=== PATIENT | male | born 1935 | race Caucasian/White ===

== ENCOUNTER 2018-12-08 12:31 | Observation (INO) ==
--- NOTE | 2018-12-08 13:02 | Emergency Department Note ---
Disposition Clinical Impression: Chest pain Qualifiers: Chest pain type: unspecified Qualified Code(s): R07.9 - Chest pain, unspecified Disposition: Admitted As Inpatient Condition: Good Time of Disposition: 14:09 General Adult HPI - General Chief complaint: ED Dizziness Stated complaint: Dizzy, Chest pain Time Seen by Provider: 12/08/18 12:42 Source: patient, family Limitations: no limitations Nursing Notes Reviewed: Yes Vital Signs Reviewed: Yes - History of Present Illness HPI Narrative: Patient is an 83-year-old male that presents the emergency department with reports of having chest pain this morning. Patient states that the pain also radiated into his left neck, shoulder and down into his arm. Patient states that he did has some associated shortness of breath and nausea but no diaphoresis. Patient also states that when he got up to walk he had significant shortness of breath. Patient states that he has never had a heart attack or required stents placed in his heart. Patient states that he has no history of hypertension and hyperlipidemia. Patient states that he is currently chest pain-free. Patient does state that he took 4 baby aspirin prior to arrival. Pain Scale: 0 - Related Data Home Medications Medication Instructions Recorded Confirmed Cetirizine HCl 10/21/18 Chlorthalidone 10/21/18 Citalopram Hydrobromide 10/21/18 [place] 3 500 Softgel 10/21/18 [place] Dayquil Liquid 10/21/18 [place] Nyquil Cold & Flu Liquid 10/21/18 Previous Rx's Medication Instructions Recorded Azithromycin [Azithromycin 6-Tab 250 mg PO PER PKG DI #6 tab 10/21/18 Pack] Allergies Allergy/AdvReac Type Severity Reaction Status Date / Time bentadine Allergy See Uncoded 10/21/18 12:46 Comments All systems ED: reviewed and negative except as stated. Constitutional: Denies: fever Cardiovascular: Reports: chest pain Respiratory: Reports: dyspnea Gastrointestinal: Reports: nausea Past Medical History - Past Medical History Medical history: Reports: hypertension Psychiatric history: Reports: no psych history - Social History Smoking Status: Never smoker Smokeless Tobacco Status: No Alcohol use: Reports: none Physical Exam - General Limitations: no limitations General appearance: alert, in no apparent distress - Head Head exam: atraumatic, normocephalic - Eye Eye exam: Present: normal appearance, EOMI - Neck Neck exam: Present: normal inspection, full ROM, trachea midline - Cardiovascular Cardiovascular exam: Present: regular rate, normal rhythm, normal heart sounds, +S1, +S2 - Abdominal Exam Abdominal exam: Present: soft, Non-Tender, normal bowel sounds - Extremities Exam Extremities exam: Present: other (1+ pitting edema bilateral lower extremity's.) - Neurological Exam Neurological exam: Present: alert, oriented X3 - Psychiatric Psychiatric exam: Present: normal affect, normal mood - Skin Skin exam: Present: warm, dry, intact Course Vital Signs Temperature 98.1 F 12/08/18 12:35 Pulse Rate 84 12/08/18 12:35 Respiratory Rate 15 12/08/18 12:35 Blood Pressure 153/86 12/08/18 12:35 O2 Sat by Pulse Oximetry 97 12/08/18 12:35 Temperature 98.1 F 12/08/18 12:52 Pulse Rate 80 12/08/18 12:52 Respiratory Rate 15 12/08/18 12:52 Blood Pressure 159/75 12/08/18 12:52 O2 Sat by Pulse Oximetry 97 12/08/18 12:52 Oxygen Delivery Oxygen Delivery Room Air Medical Decision Making - MDM Narrative Medical decision making narrative: Due the patient is not emergency Department with reports of chest pain and shortness of breath as well as radiation of his pain is concern for possible cardiac involvement. We will obtain basic laboratory tests including CBC, BMP, troponin chest x-ray and EKG. Based on the patient having an oxygen saturation in the low to mid 90s we will also obtain a d-dimer. Patient will likely require admission to the hospital. Additional aspirin will not be given here due to the patient having taken 4 baby aspirin just prior to arrival. Patient is currently chest pain-free and does not require any nitroglycerin at this time. Patient's initial heart score after his EKG was 6. Patient's laboratory testing is relatively unremarkable other than a mild hypokalemia of 3.1. Negative d-dimer, negative troponin. There is some mild T-wave flattening in V5 and V6 but otherwise the EKG does not show any acute ischemic changes. Chest x-ray showed no acute cardial ulnar process. However due to the patient having a significant heart score and having a concerning story for possible cardiac involvement we will admit the patient to the hospital for further evaluation and management. I did call and speak to the admitting hospitals Dr. Villegas he is except the patient to their service. Patient will be admitted to the hospital this time for further evaluation and management. - Medical Records Medical records reviewed: Yes I reviewed the patient's medical records. - Lab Data Lab results reviewed: Yes I reviewed the patient's lab results. Result diagrams: 12/08/18 13:10 12/08/18 13:10 Lab Results 12/08/18 12/08/18 12/08/18 Range/Units 13:10 13:10 13:10 WBC 5.9 (4.3-11.1) K/mcL RBC 4.77 (4.19-5.50) M/mcL Hgb 14.1 (12.9-16.9) g/dL Hct 41.6 (37.5-50.1) % MCV 87.2 (83.0-100.0) fL MCH 29.6 (28.0-33.3) pg MCHC 33.9 (31.6-35.5) g/dL RDW 14.5 (11.5-14.5) % Plt Count 152 (140-400) K/mcL MPV 9.5 (9.4-12.4) fL Immature Gran % 0.5 (0-4) % Seg Neutrophils % 65.0 % Lymphocytes % 25.1 % Monocytes % 6.7 % Eosinophils % 2.2 % Basophils % 0.5 % Neutrophils # 3.8 (1.6-8.9) K/mcL Lymphocytes # 1.5 (0.6-4.6) K/mcL Monocytes # 0.4 (0.0-1.3) K/mcL Eosinophils # 0.1 (0.0-0.6) K/mcL Basophils # 0.0 (0.0-0.2) K/mcL D-Dimer 357 (0-500) ng/mLFEU Sodium 139 (136-145) mEq/L Potassium 3.1 L (3.5-5.1) mEq/L Chloride 101 (98-107) mEq/L Carbon Dioxide 31 H (23-29) mEq/L BUN 20 (8-23) mg/dL Creatinine 0.84 (0.70-1.30) mg/dL Est GFR ( Amer) > 60 (> 60) Est GFR (Non-Af Amer) > 60 (> 60) BUN/Creatinine Ratio 24 (6-26) Glucose 125 H (70-105) mg/dL Calculated Osmolality 292 (280-300) Calcium 9.4 (8.6-10.3) mg/dL Troponin I < 0.03 (< 0.04) ng/mL - Radiology Data Radiology results reviewed: Yes I reviewed the patient's radiology results. Chest X-Ray 12/08/18 12:47 IMPRESSION: No evidence for acute cardiopulmonary process. D/ / Chester Young MD / Chester Young MD Interpreting Provider: Chester Young MD - EKG Data EKG #1 EKG attestation: Yes I reviewed and interpreted this EKG. EKG results narrative: EKG shows a sinus rhythm at a rate of 84 bpm, OH interval of 220, QRS duration o f 98, QTc of 428. Normal axis. There is some mild T-wave flattening in V5 and V6. This is new in comparison to previous EKG on 06/09/11. Attestation Statement - Attestation Attestation: I, Raymundo Sauceda, examined this patient and my medical decision-making was reviewed with the GLASS FRAME [employer]TER/PA/Advanced Practice Nurse/Resident Physician. I agree with the documented findings, disposition and treatment plan as described except to the extent set forth below. 83-year-old male presents emergency Department with concerns of central and left-sided chest pain. Pain radiates to the left jaw and the left upper extremity. Patient states pain is worse with exertion. Improves with rest. Patient became nauseated with the pain today. Patient denies fever, chills, cough, diarrhea. Initial troponin negative. EKG had T-wave flattening but o therwise does not show evidence of STEMI. He will be admitted to the hospitalist for further care and evaluation of his acute chest pain to rule out ACS.
[2018-12-08 13:22] LABS: Basophils % 0.5 %; Eosinophils # 0.1 K/mcL (0.0-0.6); Eosinophils % 2.2 %; Hematocrit 41.6 % (37.5-50.1); Hemoglobin 14.1 g/dL (12.9-16.9); Immature Granulocytes % 0.5 % (0-4); Lymphocytes # 1.5 K/mcL (0.6-4.6); Lymphocytes % 25.1 %; Mean Corpuscular HGB Conc 33.9 g/dL (31.6-35.5); Mean Corpuscular Hemoglobin 29.6 pg (28.0-33.3); Mean Corpuscular Volume 87.2 fL (83.0-100.0); Mean Platelet Volume 9.5 fL (9.4-12.4); Monocytes # 0.4 K/mcL (0.0-1.3); Monocytes % 6.7 %; Neutrophils # 3.8 K/mcL (1.6-8.9); Platelet Count 152 K/mcL (140-400); Red Blood Count 4.77 M/mcL (4.19-5.50); Red Cell Distribution Width 14.5 % (11.5-14.5)
[2018-12-08 13:42] LABS: Troponin I < 0.03 ng/mL (< 0.04)
[2018-12-08 13:43] LABS: BUN/Creatinine Ratio 24 (6-26); Blood Urea Nitrogen 20 mg/dL (8-23); Calcium 9.4 mg/dL (8.6-10.3); Carbon Dioxide 31 mEq/L (23-29); Chloride 101 mEq/L (98-107); Glucose 125 mg/dL (70-105); Osmolality,Calculated 292 (280-300); Potassium 3.1 mEq/L (3.5-5.1); Sodium 139 mEq/L (136-145); eGFR For Non-African Americans > 60 (> 60)
[2018-12-08] MEDS ORDERED: Naloxone 0.4 MG/ML INJ IVP PRN (16:06)
--- NOTE | 2018-12-09 06:04 | Internal Med History&Physical ---
Date of Encounter: 12/08/18 Time of Encounter: 19:00 Internal Medicine - H&P: HPI Admitted From: Home Plans for Post Hospital Care: Home History of present illness: Mr. Fontaine is a 83 year old male Past Med Surg Social Fam HX - Past Medical History Medical history: hypertension Psychiatric history: no psych history - Past Surgical History Additional surgical history: colon - Social History Smoking Status: Never smoker Smokeless Tobacco Status: No Alcohol use: none Drug use: none - Family History Mother Living Status: Hx Family Cancer: Yes (bowel cancer) Father Living Status: Hx Family Endocrine Disorder: Yes (DM) Internal Medicine - H&P: Meds Cetirizine HCl [24Hour Allergy] 20 mg PO DAILY 12/08/18 [History] Chlorthalidone 25 mg PO DAILY 12/08/18 [History] Citalopram [CeleXA] 20 mg PO DAILY 12/08/18 [History] Flaxseed Oil/[place] 3,6,9 [Sv Flaxseed Oil 1,300 mg Sftgl] 1 each PO DAILY 12/08/18 [History] Multivit-Min/FA/Lycopen/Lutein [Centrum Silver Men Tablet] 1 each PO DAILY 12/08/18 [History] Ubidecarenone [Co Q-10] 100 mg PO DAILY 12/08/18 [History] Allergy/AdvReac Type Severity Reaction Status Date / Time bentadine Allergy See Uncoded 10/21/18 12:46 Comments - Constitutional Vitals: Temp Pulse Resp BP Pulse Ox 98 F 74 16 118/74 94 12/09/18 02:53 12/09/18 02:53 12/09/18 02:53 12/09/18 02:53 12/09/18 02:53 General appearance: Present: A&O X 3, no acute distress, answers questions appropriately Exam: xx Internal Med - H&P Results - Labs CBC & Chem 7: 12/08/18 13:10 12/08/18 13:10 Labs: Short CBC 12/08/18 Range/Units 13:10 WBC 5.9 (4.3-11.1) K/mcL Hgb 14.1 (12.9-16.9) g/dL Hct 41.6 (37.5-50.1) % Plt Count 152 (140-400) K/mcL Neutrophils # 3.8 (1.6-8.9) K/mcL BMP 12/08/18 13:10 Sodium 139 Potassium 3.1 L Chloride 101 Carbon Dioxide 31 H BUN 20 Creatinine 0.84 Glucose 125 H Calcium 9.4 Cardiac Enzymes 12/08/18 Range/Units 13:10 Troponin I < 0.03 (< 0.04) ng/mL - Impressions ITS Impressions Chest X-Ray 12/08/18 12:47 IMPRESSION: No evidence for acute cardiopulmonary process. D/ / Chester Young MD / Chester Young MD Interpreting Provider: Chester Young MD Chest CT 12/08/18 17:00 IMPRESSION: 1. No acute intrathoracic process identified. 2. Coronary artery atherosclerotic disease. D/ / Douglas Hidalgo MD / Douglas Hidalgo MD Interpreting Provider: Douglas Hidalgo MD - Assessment and plan (1) Chest pain Current Visit: Yes Status: Acute Qualifiers: Chest pain type: other chest pain Qualified Code(s): R07.89 - Other chest pain; R07.8 - Other chest pain (2) Acute hypokalemia Current Visit: Yes Status: Acute (3) HTN (hypertension) Current Visit: Yes Status: Acute Qualifiers: Hypertension type: essential hypertension Qualified Code(s): I10 - [place] (primary) hypertension - Time Spent With Patient Total time spent is greater than 50% in coordination of care (as documented) at patient's floor/unit and/or counseling patient: 25 - 35 minutes
[2018-12-09 07:49] LABS: Troponin I < 0.03 ng/mL (< 0.04)
[2018-12-09 07:54] LABS: Carbon Dioxide 33 mEq/L (23-29); Chloride 103 mEq/L (98-107); Potassium 3.4 mEq/L (3.5-5.1); Sodium 141 mEq/L (136-145)
[2018-12-09] MEDS ORDERED: Aspirin 81 MG TAB.CHEW PO SCH (09:00)
[2018-12-09] MEDS ORDERED: Perflutren Lipid Microsphere 1.3 ML in 0.9 % Sodium Chloride 8.7 ML IVP ONE (10:35)
[2018-12-09] MEDS ORDERED: Perflutren Lipid Microsphere 2 ML VIAL ONE (10:49)
--- NOTE | 2018-12-09 15:06 | Discharge Summary ---
- NOTES TO OUTPATIENT PROVIDER Notes to Outpatient Provider: PCP in 5 to 7 days. Recommending out pt stress test and send results to Loyda Mckeon Date of Encounter: 12/09/18 Time of Encounter: 15:03 - Discharge Diagnosis (1) Chest pain Priority: Primary Status: Acute Assessment and Plan: Pt states chest pain completely resolved. He denies SOB. Troponin negative times 2. Echo reviewed showed mild left ventricular diastolic dysfunction with EF 65%. D dimer 357, hence admitting physician did not proceed with CTA chest. Oxygen sat 93% on RA with activity/[address] chest non-contrast CT/CT chest wo con IMPRESSION: 1. No acute intrathoracic process identified. 2. Coronary artery atherosclerotic disease. Qualifiers: Chest pain type: other chest pain Qualified Code(s): R07.89 - Other chest pain; R07.8 - Other chest pain (2) Acute hypokalemia Priority: Secondary Status: Acute Assessment and Plan: Potassium improved at 3.4 this am. Will give one more dose PO KCL 4o mEq prior to discharge. (3) HTN (hypertension) Priority: Secondary Status: Acute Assessment and Plan: Metoprolol 12.5 mg PO BID Qualifiers: Hypertension type: essential hypertension Qualified Code(s): I10 - Essential (primary) hypertension Hospital course: Mr. Fonatine is a 83 year old male with past medical history of HTN who presented with complaint chest pain. The patient reported that he developed some difficulty breathing with lower substernal discomfort. reported it was exacerbated by activity. Lasted for a couple hours. Not associated with sweating or nausea/vomiting. Denied palpitations. He denied history of heart related problems. He did also report OBRIEN with increased activity. Discharge discussed with: patient - Time Spent with Patient Total time spent providing and/or coordinating discharge services: Greater than 30 minutes - Discharge Medications Home Medications: Cetirizine HCl [24Hour Allergy] 10 mg PO DAILY 12/08/18 [History] Chlorthalidone 25 mg PO DAILY 12/08/18 [History] Citalopram [CeleXA] 20 mg PO DAILY 12/08/18 [History] Flaxseed Oil/[place] 3,6,9 [Sv Flaxseed Oil 1,300 mg Sftgl] 1 each PO DAILY 12/08/18 [History] Multivit-Min/FA/Lycopen/Lutein [Centrum Silver Men Tablet] 1 each PO DAILY 12/08/18 [History] Allergies/Adverse Reactions: Allergy/AdvReac Type Severity Reaction Status Date / Time bentadine Allergy See Uncoded 10/21/18 12:46 Comments Date of admission: 12/08/18 14:14 Primary care physician: Shaheed Perla Consults: 12/09/18 13:22 Consult to Theatrical Variety Agent [CONS] Routine Reason for SW Consult: Advance directives Discharging clinician: Angelika Patel Anticipated date of discharge: 12/09/18 - Constitutional Vitals: Temp Pulse Resp BP Pulse Ox 97.5 F L 77 19 132/78 92 12/09/18 11:25 12/09/18 11:25 12/09/18 11:25 12/09/18 11:25 12/09/18 11:25 General appearance: Present: A&O X 3, morbidly obese, no acute distress, answers questions appropriately Exam: xx - Head Head exam: Present: atraumatic, normocephalic - Eye Eye exam: Present: PERRL, conjuntiva pink, sclera anicteric Pupils: Present: PERRL - Neck Neck exam general surgery: Present: supple, trachea midline. Absent: lymphadenopathy - Respiratory Respiratory exam: Present: CTAB. Absent: accessory muscle use, rales, rhonchi, wheezes - Cardiovascular Cardiovascular exam: Present: RRR, +S1, +S2. Absent: diastolic murmur, gallop, rubs, systolic murmur - GI/Abdominal GI/Abdominal exam: Present: normal bowel sounds, soft, no peritoneal signs. Absent: distended, tenderness - Extremities Exam Extremities exam: Present: warm, radial pulses palpable and symmetrical. Absent: calf tenderness, cyanotic, pedal edema - Neurological Exam Neurological exam: Present: CN II-XII intact, oriented X3, no focal deficits. Absent: pronater drift, facial droop, speech deficit - Skin Skin exam: Present: dry, intact - Patient Status Disposition: Home, Self-Care Condition: Good Overall status at discharge: patient is back to baseline - Discharge Instructions Follow Up With: Rudy Covington [Partnered Physician] - 12/15/18 10:00 am - Diet and Activity Activity: increase activity as tolerated Diet: low fat, low cholesterol, low salt diet
[2018-12-09 15:19] VITALS: BP 112/71
[2018-12-09 15:56] LABS: Chol/HDL Ratio 3.8 (0-4.9); Cholesterol 161 mg/dL (< 200); HDL Cholesterol 42 mg/dL (40-59); LDL Cholesterol,Calculated 92 mg/dL (0-99); Triglycerides 137 mg/dL (< 150)
--- NOTE | 2018-12-09 21:13 | Electrocardiograph Report ---
[facility] Test Date: 2018-12-08 Pat Name: Max Fontaine Department: 104 Room: 3B53 Gender: M Claims Adjuster Crop: CHOCO : 1935 Requested By: Pavithra Sauceda Order Number: [id number] Reading MD: Sinan Quispe Measurements Intervals [place] Rate: 84 P: 70 AK: 220 QRS: 66 QRSD: 98 T: 62 QT: 387 QTc: 428 Interpretive Statements SINUS RHYTHM WITH MARKED SINUS ARRHYTHMIA LOW QRS VOLTAGE IN PRECORDIAL LEADS Electronically Signed On 12-09-2018 21:11:54 EST by Sinan Quispe
== END 2018-12-09 18:30 | disposition home or self-care (01) ==
LOC: 3BNU 12:31 → EMEROOARM 12:31 → 3BNU 14:51
PROVIDERS: ADMIT Internal Medicine; ATTEND Internal Medicine